=== PATIENT | male | born 1960 | race African-American/Black ===

== ENCOUNTER → 2021-05-08 01:24 | Outpatient (CLI) | payer OTHER, SELFPAY ==
[2021-05-08 22:45] LABS: SARS-CoV-2 RNA PCR Negative
== END ==
PROVIDERS: PCP Family Medicine; Visit Provider Pain Medicine Pain Medicine
DX: Z01.812 Encounter for preprocedural laboratory examination (principal); Z20.822 Contact with and (suspected) exposure to COVID-19
CPT/HCPCS: C9803; U0003; U0005